=== PATIENT | male | born 1950 | race Asian ===

== ENCOUNTER 2019-10-08 15:44 | Emergency (ER) | payer OTHER, BC ==
[~2019-10-08] VITALS: Ht 182.9 cm; Wt 68.9 kg
[~2019-10-08 15:44] MED LIST: GLU5 PO; NOR5 PO
[2019-10-08 16:10] VITALS: Ht 182.9 cm; Wt 68.9 kg
[2019-10-08 17:42] VITALS: BP 143/87
== END 2019-10-08 17:42 | disposition home or self-care (01) ==
LOC: ED 15:44
DX: B34.9 Viral infection, unspecified (principal); I10 Essential (primary) hypertension; E11.9 Type 2 diabetes mellitus without complications